=== PATIENT | female | born 1975 | race Two or more races ===

== ENCOUNTER 2017-02-07 00:07 | Emergency (ER) | payer MEDICAID ==
[2017-02-07 01:04] LABS: PH,URINE 6.5 (5.0-8.0); SPECIFIC GRAVITY 1.015 (1.001-1.030); URINE BILIRUBIN NEGATIVE (NEGATIVE); URINE BLOOD 3+ (NEGATIVE); URINE GLUCOSE (UA) NEGATIVE (NEGATIVE); URINE LEUKOCYTE ESTERASE NEGATIVE (NEGATIVE); URINE NITRITE NEGATIVE (NEGATIVE); URINE PROTEIN NEGATIVE (NEGATIVE); URINE UROBILINOGEN NORMAL (0-1 mg/dl)
[2017-02-07 01:05] LABS: URINE APPEARANCE HAZY; URINE COLOR YELLOW
[2017-02-07 01:06] LABS: HCG,QUALITATIVE URINE NEGATIVE
[2017-02-07 01:12] LABS: URINE EPITHELIAL CELLS 15-20 /hpf
[2017-02-07 01:13] LABS: URINE BACTERIA 2+
[2017-02-07] MEDS ORDERED: KETOROLAC TROMETHAMINE 60 MG/2 ML VIAL ONE (02:27)
[2017-02-07] MEDS ORDERED: ONDANSETRON 4 MG ODT TAB ONE (02:27)
[2017-02-07] MEDS ORDERED: HYDROCODONE/ACETAMINOPHEN 5/325MG TABLET ONE (02:28)
[2017-02-07 02:29] LABS: ABSOLUTE NEUTROPHIL COUNT 6.8 K/mm3 (1.8-7.7); BASO # 0.1 K/mm3 (0.0-0.2); BASO % 0.7 % (0.2-1.0); EOS # 0.2 (0.0-0.5); EOS % 2.3 % (0.9-2.9); HEMATOCRIT 38.5 % (37.0-47.0); HEMOGLOBIN 13.1 gm/l (12.0-16.0); IMM NEUT% 0.2 % (0-1); LYMPH # 2.2 (1.0-4.8); LYMPH % 21.3 % (15-45); MEAN CELL VOLUME 94.1 fl (81.0-99.0); MEAN PLATELET VOLUME 10.9 fl (7.4-10.4); MONO # 1.1 (0.0-0.8); MONO % 10.7 % (4-12); NEUT % 64.8 % (43-75); PLATELET COUNT 167 K/mm3 (130-400); RED CELL DISTRIBUTION WIDTH 12.5 % (11.5-14.5)
[2017-02-07 02:51] LABS: ALB/GLOB RATIO 1.4 (>1.0); ALBUMIN 4.2 gm/dL (3.5-5.7); CALCIUM 9.5 mg/dL (8.6-10.3)
--- NOTE | 2017-02-07 06:44 | CT ---
Name: MIHIR COBURN Exam: Noncontrast renal stone CT Comparison: None Clinical History: Bilateral flank pain Procedure: Helical CT using multidetector technique was applied to the abdomen and pelvis without contrast. Sagittal, axial and coronal reconstructions were obtained. An automated dose reduction technique was used to minimize patient radiation dose. Findings: CT abdomen (noncontrast): Lung bases are clear. Heart is nonenlarged. There is no pericardial effusion. Fatty infiltration of the liver is present. Noncontrast images of the gallbladder, pancreas, spleen, adrenal glands, aorta, IVC and portal vein are normal. There is a 3 mm nonobstructing calculus right kidney. There is a punctate nonobstructing calculus left kidney. There is moderate stool within the ascending and transverse colon. Stomach and small bowel are normal. There is no free air, free fluid or suspicious adenopathy. There is a small fat filled umbilical hernia. Regional skeleton is unremarkable. CT pelvis (noncontrast): Bladder is partially filled. Urachal diverticulum is not excluded on this exam.. Uterus contains an IUD. Left ovary is normal in the right ovary is not clearly identified. Appendix is not identified her there is no pericecal stranding. Small bowel colon are unremarkable. There is no free air, free fluid or suspicious adenopathy. Impression: 1. Bilateral tiny nonobstructing renal calculi 2. Fatty infiltration liver 3. Possible ureteral diverticulum. There is no inflammation. 4. No bowel obstruction Note: Findings were transmitted to the emergency department from [place] at 0311 hours
== END 2017-02-07 03:44 | disposition home or self-care (01) ==
LOC: ED 00:07
DX: S39.011A Strain of muscle, fascia and tendon of abdomen, initial encounter (principal); X58.XXXA Exposure to other specified factors, initial encounter; Y92.9 Unspecified place or not applicable
CPT/HCPCS: 83690; 81025; 85025; 80053; 81001; 74176; 99284; 96372; 36415; 99283; J1885; A9270 ×2